=== PATIENT | female | born 1985 | race Caucasian/White ===

== ENCOUNTER 2019-04-12 08:41 | Inpatient (IN) ==
[2019-04-12] MEDS ORDERED: Albuterol 2.5 MG/3 ML NEBULIZER IH PRN (09:06)
[2019-04-12] MEDS ORDERED: CeFAZolin Syr 2,000MG/20 ML 2,000 MG/20 ML SYRINGE IVPB ONE (09:06)
[2019-04-12] MEDS: Ringers Solution, Lactated 1,000 ML IVC SCH ×2 (09:36→11:53)
[2019-04-12] MEDS ORDERED: *HR* Midazolam HCl 2 MG/2 ML VIAL ONE (09:41)
[2019-04-12] MEDS ORDERED: Lidocaine HCL 4 ML Topical Solution (Laryng-O-Jet Kit Sterile Pak) TP ONE (09:41)
[2019-04-12] MEDS ORDERED: Dexamethasone 4 MG/ML VIAL ONE (09:41)
[2019-04-12] MEDS ORDERED: Lidocaine -MPF 2% 2 ML VIAL ONE (09:41)
[2019-04-12] MEDS ORDERED: Ondansetron 4 MG/2 ML VIAL ONE (09:41)
[2019-04-12] MEDS ORDERED: *HR* FentaNYL (PF) 100 MCG/2 ML VIAL ONE ×2 (09:41→12:03)
[2019-04-12] MEDS ORDERED: *HR* Propofol 200 MG/20 ML VIAL IVP ONE (09:41)
[2019-04-12] MEDS ORDERED: *HR* Rocuronium Bromide 50 MG/5 ML VIAL ONE (09:41)
[2019-04-12] MEDS ORDERED: Neostigmine Methylsulfate 3 MG/3 ML SYRINGE ONE ×2 (09:52→11:33)
[2019-04-12] MEDS ORDERED: EPHEDrine 50 MG/ML VIAL ONE (10:02)
[2019-04-12] MEDS ORDERED: Scopolamine Patch 1.5 MG PATCH.TD72 TD ONE (10:31)
[2019-04-12] MEDS ORDERED: Pregabalin 75 MG CAPSULE PO ONE (10:31)
[2019-04-12] MEDS ORDERED: Famotidine 20 MG/2 ML VIAL IVP ONE (10:31)
[2019-04-12] MEDS ORDERED: *HR* Promethazine 25 MG/ML VIAL IVP PRN (10:31)
[2019-04-12] MEDS ORDERED: *HR* HYDROmorphone 2 MG TABLET PO PRN (10:31)
[2019-04-12] MEDS ORDERED: Acetaminophen IV 1,000 MG/100 ML INFUS..BTL IVPB ONE (10:31)
[2019-04-12] MEDS ORDERED: *HR* Labetalol 20 MG/4 ML SYRINGE IVP PRN (10:31)
[2019-04-12] MEDS ORDERED: Bupivacaine/EPI 1:200k 0.25%PF 10 ML VIAL INFILT ONE (10:54)
[2019-04-12] MEDS: *HR* HYDROmorphone (PF) 1 MG/ML SYRINGE IVP PRN ×2 (13:02→13:33)
[2019-04-12] MEDS ORDERED: Ketorolac 15 MG/ML VIAL IVP ONE (13:18)
[2019-04-12] MEDS ORDERED: Naloxone 0.4 MG/ML INJ IVP PRN (14:34)
[2019-04-12] MEDS ORDERED: Ondansetron 4 MG/2 ML VIAL IVP PRN (14:34)
[2019-04-12] MEDS ORDERED: Sennosides 8.6 MG TABLET PO PRN (14:34)
[2019-04-12] MEDS: *HR* HYDROcodone/Acet 5/325 mg TABLET PO PRN ×2 (15:28→22:04)
[2019-04-12] MEDS: D5% in 0.45% NACL 1,000 ML IVC SCH ×2 (15:33→21:43)
[2019-04-12] MEDS: *HR* Metformin 500 MG TABLET PO SCH (18:42)
[2019-04-12] MEDS: Ibuprofen 600 MG TABLET PO PRN (18:43)
[2019-04-12] MEDS: Acetaminophen 325 MG TABLET PO PRN (18:43)
[2019-04-12] MEDS: lamoTRIgine 100 MG TABLET PO SCH (21:41)
[2019-04-13] MEDS: Ibuprofen 600 MG TABLET PO PRN ×4 (01:17→20:40)
[2019-04-13] MEDS: Acetaminophen 325 MG TABLET PO PRN (01:18)
[2019-04-13] MEDS: *HR* HYDROcodone/Acet 5/325 mg TABLET PO PRN ×4 (05:13→21:34)
[2019-04-13 05:16] LABS: Basophils # 0.1 K/mcL (0.0-0.2); Basophils % 0.6 %; Eosinophils % 0.2 %; Hematocrit 32.9 % (35.3-44.9); Hemoglobin 10.9 g/dL (11.5-15.4); Immature Granulocytes % 0.3 % (0-4); Lymphocytes # 2.4 K/mcL (0.6-4.6); Lymphocytes % 22.3 %; Mean Corpuscular HGB Conc 33.1 g/dL (31.6-35.5); Mean Corpuscular Hemoglobin 30.3 pg (28.0-33.3); Mean Corpuscular Volume 91.4 fL (83.0-100.0); Mean Platelet Volume 9.3 fL (9.4-12.4); Monocytes # 0.9 K/mcL (0.0-1.3); Monocytes % 8.4 %; Neutrophils # 7.4 K/mcL (1.6-8.9); Platelet Count 272 K/mcL (140-400); Red Cell Distribution Width 12.7 % (11.5-14.5); Segmented Neutrophils % 68.2 %; White Blood Count 10.8 K/mcL (4.3-11.1)
[2019-04-13] MEDS: *HR* Metformin 500 MG TABLET PO SCH ×2 (09:09→17:29)
[2019-04-13] MEDS: Folic Acid 1 MG TABLET PO SCH (09:10)
[2019-04-13] MEDS: lamoTRIgine 100 MG TABLET PO SCH ×2 (09:10→20:40)
[2019-04-13] MEDS ORDERED: Simethicone 80 MG TAB.CHEW PO PRN (17:32)
[2019-04-14] MEDS: *HR* HYDROcodone/Acet 5/325 mg TABLET PO PRN (06:13)
[2019-04-14] MEDS: lamoTRIgine 100 MG TABLET PO SCH (08:06)
[2019-04-14] MEDS: Folic Acid 1 MG TABLET PO SCH (08:06)
[2019-04-14] MEDS: *HR* Metformin 500 MG TABLET PO SCH (08:06)
[2019-04-14 08:33] VITALS: BP 99/70
== END 2019-04-14 11:50 | disposition home or self-care (01) | DRG 983 ==
LOC: SAMDAY 08:41 → 1NENUOBS 14:17
PROVIDERS: ADMIT Student in an Organized Health Care Education/Training Program; ATTEND Student in an Organized Health Care Education/Training Program